=== PATIENT | male | born 1980 | race Caucasian/White ===

== ENCOUNTER 2019-04-02 11:36 | Day surgery (SDC) | payer OTHER ==
[2019-04-02] VITALS (7 sets, daily range): BP systolic 130–162; BP diastolic 78–102; PULSE 76–90; RESP 16–21; Ht 172.7 cm; Wt 95.8 kg
[~2019-04-02] VITALS: Ht 172.7 cm; Wt 95.8 kg
[~2019-04-02 11:36] MED LIST: CEFAZOLIN 2 GM/50 ML (PMX) 50 ML IVPB ONE
[2019-04-02] MEDS ORDERED: PRAV10TA43 PO (12:27)
[2019-04-02] MEDS ORDERED: LOSA1TAB22 PO (12:27)
[2019-04-02] MEDS ORDERED: ASPI81TA52 PO (12:28)
[2019-04-02] MEDS ORDERED: AMLO2.5T78 PO (12:28)
[2019-04-02] MEDS: SOD CHLORIDE 0.9% 1,000 ML IV SCH ×2 (13:16→16:39)
--- NOTE | 2019-04-02 15:54 | PREAC ---
Date/Time of Note Date/Time of Note DATE: 04/02/19 TIME: 15:53 Anesthesia Eval and Record Evaluation Time Pre-Procedure Interview DATE: 04/02/19 TIME: 15:53 Age 39 Sex male NPO: 8 hrs Preoperative diagnosis L flank mass Planned procedure excision of L flank mass Past Medical History Past Medical History: Includes Cardio: HTN, Dyslipidemia GI: Obesity Surgery & Anesthesia Issues No known issue Meds Anticoagulation: No Beta Arnav within 24 hr: No Reason Beta Arnav not given: Pt. not on B-Arnav Reported Medications Amlodipine Besylate* (Amlodipine Besylate*) 2.5 Mg Tablet, 2.5 MG PO DAILY, #30 TAB 04/02/19 Aspirin (Low Dose Aspirin) 81 Mg Tablet.dr, 81 MG PO DAILY, #30 TAB 04/02/19 Losartan-Hydrochlorothiazide (Losartan-HCTZ) 50-12.5 Mg Tab, 1 TAB PO DAILY, TAB 04/02/19 Pravastatin Sodium* (Pravastatin Sodium*) 10 Mg Tablet, 10 MG PO HS, TAB 04/02/19 Current Medications Sodium Chloride 1,000 ml @ 75 mls/hr [id number] IV Last administered on 04/02/19at 13:16; Admin Dose 75 MLS/HR; Start 04/02/19 at 07:00; Stop 04/02/19 at 20:19 Meds reviewed: Yes Allergies Coded Allergies: No Known Drug Allergies (Verified Allergy, Unknown, 04/02/19) Allergies Reviewed: Yes Labs/Studies Labs Reviewed: Reviewed by anesthesiologist test: N/A Pre-procedure Exam Last vitals Vital Signs Date Temp Pulse Resp B/P (MAP) Pulse Ox O2 O2 Flow FiO2 Time Delivery Rate 04/02/19 98.0 86 16 130/86 96 Room Air 13:00 (101) Airway: Adequate mouth opening, Adequate thyromental dist Mallampati: Mallampati II Teeth: Normal Lung: Normal Heart: Normal ASA Physical Status ASA physical status: 2 Emergency: None Planned Anesthetic General/MAC: ETT Pre-operative Attestations Prior to commencing anesthesia and surgery, the patient was re-evaluated, there was verification of: *The patient's identity *The results of appropriate recent lab work and preoperative vital signs *The above evaluation not changing prior to induction *Anesthetic plan, risk benefits, alternative and complications discussed with patient/family; questions answered; patient/family understands, accepts and wishes to proceed. YONY MACEDO April 02, 2019 15:54
[2019-04-02] MEDS ORDERED: ONDANSETRON 4 MG INJ IV PRN ×2 (16:00→18:00)
[2019-04-02] MEDS ORDERED: METOCLOPRAMIDE 10 MG INJ IV PRN (16:00)
[2019-04-02] MEDS ORDERED: FENTAnyl 50 MCG/ML VIAL IV PRN ×3 (16:00)
[2019-04-02] MEDS ORDERED: HYDROmorphONE 1 MG/5 ML IV SYRINGE IV PRN ×3 (16:00)
[2019-04-02] MEDS ORDERED: DIPHENHYDRAMINE 50 MG INJ IV PRN (16:00)
[2019-04-02] MEDS ORDERED: ALBUTEROL 0.083% (NEB) 2.5 MG/3 ML AMP HHN PRN (16:00)
[2019-04-02] MEDS ORDERED: MEPERIDINE 25 MG INJ IV PRN (16:00)
--- NOTE | 2019-04-02 16:00 | HPN ---
Date/Time of Note Date/Time of Note DATE: 04/02/19 TIME: 15:59 Interval H&P Admission Note Pt. seen H&P reviewed: No system changes HÉCTOR DAVIS MD April 02, 2019 16:00
[2019-04-02] MEDS ORDERED: FENTAnyl 50 MCG/ML VIAL ONE ×2 (16:07→17:06)
[2019-04-02] MEDS ORDERED: SUGAMMADEX SODIUM 200 MG/2 ML VIAL IV ONE (16:26)
[2019-04-02] MEDS ORDERED: SUCCINYLCHOLINE CHLORIDE 100 MG/5 ML SYG IV ONE (16:26)
[2019-04-02] MEDS ORDERED: PROPOFOL 40 ML ONE (16:26)
[2019-04-02] MEDS ORDERED: ROCURONIUM 50 MG INJ ONE (16:26)
[2019-04-02] MEDS ORDERED: CEFAZOLIN 1 GM INJ ONE (16:26)
[2019-04-02] MEDS ORDERED: LIDOCAINE 100 MG SYRINGE ONE (16:26)
[2019-04-02] MEDS ORDERED: BUPIVACAINE 0.25%/EPI (SDV) 30 ML INJ INJ ONE (16:38)
--- NOTE | 2019-04-02 17:43 | OPR ---
Date/Time of Note Date/Time of Note DATE: 04/02/19 TIME: 17:38 Operative Report Procedure Date: April 02, 2019 Preoperative Diagnosis Left flank mass Postoperative Diagnosis Left flank mass Operation/Procedure Performed Excision of left flank mass, intramuscular, 9 cm Surgeon see signature line Portainer Operator None Anesthesia Type: general Anesthesiologist: YONY MACEDO Estimated Blood Loss: minimal Transfusion none Specimen Left flank mass Grafts/Implants none Complications none Pt Condition Post Procedure: stable Disposition: PACU Indications Patient is a overweight 39-year-old male who presented to the office complaining of a mass of the left flank. He reported pain and growth. 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 Patient was scheduled for elective excision for symptom relief and definitive pathological diagnosis. All risks and benefits of the procedure including, but not limited to: Wound infection, e xcessive bleeding, postoperative hematoma/seroma formation, mass recurrence, etc. were all explained to the patient in full detail. He fully understood and wished to proceed with the procedure. Informed consent was obtained. Procedure Description Patient was brought to the operating room and placed supine on the operating table. Bilateral sequential compression devices were placed on both lower extremities. A dose of broad-spectrum perioperative intravenous antibiotics was given. The mass which was located in the anterior left flank was preoperatively marked and confirmed with the patient in the holding area. After the induction of smooth general anesthesia the patient's abdomen and flank were prepped and draped in standard surgical fashion. An oblique incision was then made over the mass using a 15 blade scalpel. 0.25% Marcaine with epinephrine was injected over the area of the incision prior to making the incision. Incision was carried down through the skin and subcutaneous tissues to the level of the external oblique fascia which was incised in the direction of its fibers. A lipomatous neoplasm was identified within the fibers of the external oblique muscle. It was dissected free from the surrounding muscle and tissues circum ferentially using combination of blunt dissection and Bovie electrocautery. Once it was completely dissected free it was able to be delivered through the incision, transected at its base and passed off the field the specimen. It measured approximately 9 cm in maximal dimension. Hemostasis was inspected for and noted to be adequate. The wound cavity was then irrigated with warm irrigation and the irrigant returned clear. The fascia was then reapproximated using a running 3-0 Vicryl suture. The wound was then closed in layers using interrupted 3-0 Vicryl sutures for the dermal layer. The skin was reapproximated using running 4-0 Monocryl suture in subcuticular fashion. Further local anesthesia was applied around the skin of the incision site. Incision was then cleaned and Steri-Strips was applied as well as sterile dressings. The patient was awoken from anesthesia and transferred to the recovery room in stable condition. All counts were correct at the end of the case x2 HÉCTOR DAVIS MD April 02, 2019 17:43
[2019-04-02] MEDS ORDERED: KETOROLAC 30 MG INJ IV PRN (18:00)
[2019-04-02] MEDS ORDERED: IBUPROFEN 600 MG TAB PO PRN (18:00)
--- NOTE | 2019-04-03 07:27 | PAC ---
Date/Time of Note Date/Time of Note DATE: 04/03/19 TIME: 07:27 Post-Anesthesia Notes Post-Anesthesia Note Last documented vital signs Vital Signs Date Temp Pulse Resp B/P (MAP) Pulse Ox O2 O2 Flow FiO2 Time Delivery Rate 04/02/19 96.9 76 18 154/78 97 Room Air 18:22 (103) Activity: WNL Respiratory function: WNL Cardiovascular function: WNL Mental status: Baseline Pain reasonably controlled: Yes Hydration appropriate: Yes Nausea/Vomiting absent: Yes YONY MACEDO April 03, 2019 07:27
== END 2019-04-02 18:52 | disposition home or self-care (01) ==
LOC: SDS 11:36
PROVIDERS: ATTEND Surgery
DX: D17.9 Benign lipomatous neoplasm, unspecified (principal); I10 Essential (primary) hypertension; E78.00 Pure hypercholesterolemia, unspecified; F17.210 Nicotine dependence, cigarettes, uncomplicated
CPT/HCPCS: 22903; 88307; J0690; J1885; J2001; J3010; Z7512; Z7610